=== PATIENT | female | born 1955 | race Two or more races ===

== ENCOUNTER 2021-06-19 18:32 | Inpatient (IN) | payer MEDICARE, OTHER ==
[~2021-06-19] VITALS: Ht 157.5 cm; Wt 95.0 kg
[2021-06-19] MEDS ORDERED: IV NORMAL SALINE 500ML BAG 500 ML IV ONE (19:30)
[2021-06-19 19:50] LABS: BASO # 0.1 x10^3/uL (0.0-0.2); BASO % 1 % (0-3); EOS % 0 % (0-3); HEMATOCRIT 42.9 % (36.0-47.0); LYMPH # 3.3 x10^3/uL (1.0-4.8); LYMPH % 31 % (24-48); MEAN CORPUSCULAR HEMOGLOBIN 28 pg (25-35); MEAN CORPUSCULAR HGB CONC 33 g/dL (31-37); MEAN CORPUSCULAR VOLUME 86 fL (79-100); MONO # 0.7 x10^3/uL (0.0-1.1); MONO % 6 % (0-9); NEUT # 6.7 x10^3/uL (1.8-7.7); NEUT % 63 % (31-73); PLATELET COUNT 309 x10^3/uL (140-400); RED BLOOD COUNT 4.97 x10^6/uL (3.50-5.40); RED CELL DISTRIBUTION WIDTH 13.2 % (11.5-14.5); WHITE BLOOD COUNT 10.7 x10^3/uL (4.0-11.0)
[2021-06-19 20:00] LABS: PROTHROMBIN TIME PATIENT 12.7 SEC (11.7-14.0)
--- NOTE | 2021-06-19 20:01 | PHYS DOC ---
Past Medical History Past Surgical History: No Surgical History Adult General Chief Complaint Chief Complaint: CHEST PAIN HPI HPI 66-year-old female with a history of hyperlipidemia and elevated blood pressure without a formal diagnosis of hypertension, and without other medical problems for which she takes daily medication, presents for evaluation of palpitations and left-sided neck and arm discomfort with onset this morning upon awakening from sleep. Had an almost identical episode 1 week ago which resolved after a day and for which she did not seek care. Today she went to the doctor; at the clinic an EKG was obtained which showed atrial fibrillation with rapid ventricular response at a rate of 146. She was directed to the emergency department for further evaluation and treatment. Upon initial evaluation here in the emergency department patient is alert and pleasantly and appropriately interactive and in no acute distress with appropriate vital signs aside from elevated blood pressure and a rapid heart rate, with atrial fibrillation noted on cardiac telemetry. She endorses no discomfort right now but notes a rapid heartbeat which is palpable to her. States before a week ago she had never had this sensation in the past. Patient denies fevers, nausea or vomiting, upper respiratory congestion/rhinorrhea, cough, sore throat, shortness of breath, chest pain of any kind, abdominal pain, flank pain, back pain, dysuria, hematuria, polyuria or oliguria, pain or swelling to arms or legs, changes in bowel habits. Review of Systems Review of Systems A 12 point review of systems was completed and was negative except where noted in HPI above. Current Medications Current Medications Current Medications Medications (Trade) Dose Ordered Sig/Yan Start Time Stop Time Status Last Admin Dose Admin Diltiazem HCl (Cardizem Iv Push) 20 mg 1X ONCE 06/19/21 19:30 06/19/21 19:31 DC 06/19/21 19:50 20 MG Diltiazem HCl 125 mg/Sodium Chloride 125 ml @ 5 mls/hr 1X ONCE 06/19/21 21:30 06/20/21 22:29 UNV Sodium Chloride 500 ml @ 500 mls/hr 1X ONCE 06/19/21 19:30 06/19/21 20:29 DC Allergies Allergies Allergies Coded Allergies Type Severity Reaction Last Updated Verified No Known Drug Allergies 06/19/21 No Physical Exam Physical Exam Older female appearing nontoxic and in no acute distress. Head is normocephalic and atraumatic. Neck is supple and nontender. Oropharynx is moist. Lungs are clear to auscultation at all stations. There is a normal S1 and S2 without rubs or gallops and capillary refill is appropriate, less than 2 seconds globally. Abdomen is soft, nontender nondistended. Skin is warm and dry without cyanosis, clubbing or edema. Psychiatrically, the patient demonstrates appropriate mood and affect and is alert. Evaluation of the extremities reveals BUEs and BLEs neurovascularly intact distally with strength 5 out of 5, sensation intact light touch in all nerve distributions, radial, DP and PT pulses 2+ and equal bilaterally, capillary refill less than 2 seconds, hands and feet warm and well-perfused. No dependent peripheral edema distally. No calf tenderness or swelling bilaterally. Homans test is negative bilaterally. Current Patient Data Vital Signs Vital Signs Date Time Temp Pulse Resp B/P (MAP) Pulse Ox O2 Delivery O2 Flow Rate FiO2 06/19/21 20:08 90 16 154/84 (107) 96 Room Air 06/19/21 19:10 97.8 97.8 Lab Values Laboratory Tests Test 06/19/21 19:40 White Blood Count 10.7 x10^3/uL (4.0-11.0) Red Blood Count 4.97 x10^6/uL (3.50-5.40) Hemoglobin 14.0 g/dL (12.0-15.5) Hematocrit 42.9 % (36.0-47.0) Mean Corpuscular Volume 86 fL (79-100) Mean Corpuscular Hemoglobin 28 pg (25-35) Mean Corpuscular Hemoglobin Concent 33 g/dL (31-37) Red Cell Distribution Width 13.2 % (11.5-14.5) Platelet Count 309 x10^3/uL (140-400) Neutrophils (%) (Auto) 63 % (31-73) Lymphocytes (%) (Auto) 31 % (24-48) Monocytes (%) (Auto) 6 % (0-9) Eosinophils (%) (Auto) 0 % (0-3) Basophils (%) (Auto) 1 % (0-3) Neutrophils # (Auto) 6.7 x10^3/uL (1.8-7.7) Lymphocytes # (Auto) 3.3 x10^3/uL (1.0-4.8) Monocytes # (Auto) 0.7 x10^3/uL (0.0-1.1) Eosinophils # (Auto) 0.0 x10^3/uL (0.0-0.7) Basophils # (Auto) 0.1 x10^3/uL (0.0-0.2) Prothrombin Time 12.7 SEC (11.7-14.0) Prothrombin Time INR 1.0 (0.8-1.1) Activated Partial Thromboplast Time 31 SEC (24-38) Sodium Level 140 mmol/L (136-145) Potassium Level 4.3 mmol/L (3.5-5.1) Chloride Level 106 mmol/L (98-107) Carbon Dioxide Level 26 mmol/L (21-32) Anion Gap 8 (6-14) Blood Urea Nitrogen 13 mg/dL (7-20) Creatinine 1.0 mg/dL (0.6-1.0) Estimated GFR (Cockcroft-Gault) 55.6 BUN/Creatinine Ratio 13 (6-20) Glucose Level 122 mg/dL (70-99) H Calcium Level 8.9 mg/dL (8.5-10.1) Total Bilirubin 0.4 mg/dL (0.2-1.0) Aspartate Amino Transferase (AST) 22 U/L (15-37) Alanine Aminotransferase (ALT) 26 U/L (14-59) Alkaline Phosphatase 93 U/L (46-116) Troponin I High Sensitivity 72 ng/L (4-50) H MY-Bcf-M-Type Natriuretic Peptide 1094 pg/mL (0-124) H Total Protein 8.6 g/dL (6.4-8.2) H Albumin 4.1 g/dL (3.4-5.0) Albumin/Globulin Ratio 0.9 (1.0-1.7) L Laboratory Tests 06/19/21 19:40 Laboratory Tests 06/19/21 19:40 EKG EKG Atrial fibrillation with rapid ventricular response, rate 130s, no acute ST elevation or depression, EP interpretation. Nonischemic tracing. Radiology/Procedures Radiology/Procedures 2 views of the chest demonstrate no acute cardiopulmonary abnormality per EP interpretation. Formal radiology interpretation is to follow. Course & Med Decision Making Course & Med Decision Making Plan for labs, EKG, plain films of the chest and rate control with Cardizem. Patient will require admission. 2024: Work-up as above. Heart rate not quite controlled with Cardizem push dose of Cardizem drip ordered. Patient resting comfortably in no acute distress on serial reassessments. Case discussed with Dr. Lei who graciously accepts the patient for inpatient admission. All questions have been answered. CC time 37 minutes, independent of separately-billed procedure time. Dragon Disclaimer Dragon Disclaimer This electronic medical record was generated, in whole or in part, using a voice recognition dictation system. Departure Departure Impression: Primary Impression: Atrial fibrillation with rapid ventricular response Disposition: ADMITTED INPATIENT Condition: STABLE Referrals: NO PCP (PCP) CARLIE INTERIANO MD Jun 19, 2021 20:01
[2021-06-19 20:07] LABS: CALCIUM 8.9 mg/dL (8.5-10.1); GFR 55.6; POTASSIUM 4.3 mmol/L (3.5-5.1)
[2021-06-19 20:13] LABS: ALBUMIN 4.1 g/dL (3.4-5.0); ALBUMIN/GLOBULIN RATIO 0.9 (1.0-1.7); TOTAL BILIRUBIN 0.4 mg/dL (0.2-1.0); TOTAL PROTEIN 8.6 g/dL (6.4-8.2)
--- NOTE | 2021-06-19 21:27 | RAD ---
Exam: Chest one view INDICATION: New onset A. fib TECHNIQUE: Frontal view of the chest Comparisons: None FINDINGS: The cardiomediastinal silhouette and pulmonary vessels are within normal limits. The lung and pleural spaces are clear. IMPRESSION: No acute cardiopulmonary process. Electronically signed by: Trini Oliva MD (06/19/2021 9:25 PM) USMAN
[2021-06-19] MEDS ORDERED: ACETAMINOPHEN 325 MG TABLET. PO PRN (21:30)
[2021-06-19] MEDS ORDERED: ONDANSETRON PF 4 MG/2 ML VIAL. IVP PRN (21:30)
--- NOTE | 2021-06-19 22:03 | HP ---
DATE OF SERVICE: 06/19/2021 ADMIT DATE: 06/19/2021 CHIEF COMPLAINT: Chest pain. HISTORY OF PRESENT ILLNESS: The patient is a pleasant 66-year-old female who presented to the ER with chest pain. While in the ER, we noticed that she is in AFib with RVR. I discussed the case with ER physician. We are going to admit the patient and consult Cardiology. PAST MEDICAL HISTORY: Hypertension. ALLERGIES: None. FAMILY HISTORY: Diabetes. SOCIAL HISTORY: She does not drink, smoke or take drugs. MEDICATIONS: Reviewed, please refer to the MRAD. REVIEW OF SYSTEMS: GENERAL: No history of weight change, weakness or fevers. SKIN: No bruising, hair changes or rashes. EYES: No blurred, double or loss of vision. NOSE AND THROAT: No history of nosebleeds, hoarseness or sore throat. HEART: No history of palpitations, chest pain or shortness of breath on exertion. LUNGS: Denies cough, hemoptysis, wheezing or shortness of breath. GASTROINTESTINAL: Denies changes in appetite, nausea, vomiting, diarrhea or constipation. GENITOURINARY: No history of frequency, urgency, hesitancy or nocturia. NEUROLOGIC: Denies history of numbness, tingling, tremor or weakness. PSYCHIATRIC: No history of panic, anxiety or depression. ENDOCRINE: No history of heat or cold intolerance, polyuria or polydipsia. EXTREMITIES: Denies muscle weakness, joint pain, pain on walking or stiffness. PHYSICAL EXAMINATION: VITALS: Within normal limits and are stable. GENERAL: No apparent distress. Alert and oriented. HEENT: Normal cephalic atraumatic, external auditory canals are patent. EYES: Extraocular muscles are intact, pupils are equally round and reactive to light and accommodation. MUSCULOSKELETAL: Well developed, well nourished, good range of motion. ENDOCRINE: No thyromegaly was palpated. LYMPHATICS: No cervical chain or axillary nodes were noted. HEMATOPOIETIC: No bruising. NECK: Supple, no JVD, no thyromegaly was noted. LUNGS: Clear to auscultation in all lung melendez without rhonchi or wheezing. HEART: RRR, S1, S2 present. Peripheral pulses intact, no obvious murmurs were noted. ABDOMEN: Soft, nontender. Positive bowel sounds no organomegaly, normal bowel sounds. EXTREMITIES: Without any cyanosis, clubbing, or edema. Pedal pulses intact, Homans sign is negative. NEUROLOGIC: Normal speech, normal tone. A and O x 3, moves all extremities, no obvious focal deficits. PSYCHIATRIC: Normal affect, normal mood. Stable. SKIN: No ulcerations or rashes, good skin turgor, no jaundice. VASCULAR: Good capillary refill, neurovascular bundle appears to be intact. LABORATORY DATA: Electrolytes are normal. Hematology is normal. INR is 1. EKG shows AFib with RVR. ASSESSMENT AND PLAN: Atrial fibrillation with rapid ventricular response. The patient has been admitted. We will consult Cardiology. We gave her a dose of IV Cardizem and started Cardizem drip. Home meds. Deep venous thrombosis prophylaxis. Full code. TAYLOR DR: Roxi TID: [id number]
[2021-06-19 23:30] VITALS: BP 195/97
[2021-06-20 03:45] VITALS: BP 117/73
[2021-06-20 04:28] LABS: BASO % 0 % (0-3); EOS # 0.1 x10^3/uL (0.0-0.7); EOS % 1 % (0-3); HEMATOCRIT 41.5 % (36.0-47.0); HEMOGLOBIN 13.6 g/dL (12.0-15.5); LYMPH # 3.6 x10^3/uL (1.0-4.8); LYMPH % 35 % (24-48); MEAN CORPUSCULAR HEMOGLOBIN 29 pg (25-35); MEAN CORPUSCULAR HGB CONC 33 g/dL (31-37); MEAN CORPUSCULAR VOLUME 87 fL (79-100); MONO # 0.5 x10^3/uL (0.0-1.1); MONO % 5 % (0-9); NEUT # 6.2 x10^3/uL (1.8-7.7); NEUT % 60 % (31-73); PLATELET COUNT 311 x10^3/uL (140-400); RED CELL DISTRIBUTION WIDTH 13.5 % (11.5-14.5); WHITE BLOOD COUNT 10.4 x10^3/uL (4.0-11.0)
[2021-06-20 04:49] LABS: CALCIUM 8.6 mg/dL (8.5-10.1); CREATININE 0.9 mg/dL (0.6-1.0); GFR 62.8; POTASSIUM 4.2 mmol/L (3.5-5.1)
[2021-06-20 04:54] LABS: CHOLESTEROL/HDL RATIO 4.1
--- NOTE | 2021-06-20 05:55 | EKG ---
[facility] [address] [place] [address] Test Date: 2021-06-19 Test Time: 19:08:30 Pat Name: CARLY TOVAR Department: Room: [facility] Gender: F Dairy Manager: : [id number] Requested By: CARLIE INTERIANO Order Number: [id number] Reading MD: Zay Prasad Measurements Intervals [place] Rate: 130 P: MD: QRS: -5 QRSD: 76 T: -4 QT: 280 QTc: 418 Interpretive Statements RAPID ATRIAL FIBRILLATION LEFTWARD AXIS Electronically Signed On 06-24-2021 18:16:25 [employer]ALL [employer]GER by Zay Prasad
[2021-06-20 07:00] VITALS: BP 118/74
--- NOTE | 2021-06-20 09:57 | PDOC2 ---
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 Lei SOURCE Source: Chart review, Patient HISTORY OF PRESENT ILLNESS HISTORY OF PRESENT ILLNESS This is a 66 yo female who presented secondary to AFIB. Experienced palpitations and pain in her left neck and arm. Saw PCP who conducted EKG and was noted in AFIB with RVR. Was referred to the ED for further evaluation and treatment. She denies any dizziness, diaphoresis, or shortness of breath. No prior h/o CAD or prior cardiac workup. Is presently on Cardizem gtt. She converted back to SR th is afternoon. PAST MEDICAL HISTORY Cardiovascular: HTN, Hyperlipidemia Musculoskeletal: Osteoarthritis PAST SURGICAL HISTORY Past Surgical History: No pertinent history FAMILY HISTORY Family History: Diabetes SOCIAL HISTORY Smoke: No ALCOHOL: none Drugs: None Lives: with Family CURRENT MEDICATIONS CURRENT MEDICATIONS Current Medications Medications (Trade) Dose Ordered Sig/Yan Route PRN Reason Start Time Stop Time Status Last Admin Dose Admin Diltiazem HCl (Cardizem Iv Push) 20 mg 1X ONCE IVP 06/19/21 19:30 06/19/21 19:31 DC 06/19/21 19:50 Sodium Chloride 500 ml @ 500 mls/hr 1X ONCE IV 06/19/21 19:30 06/19/21 20:29 DC 06/19/21 19:40 Diltiazem HCl 125 mg/Sodium Chloride 125 ml @ 5 mls/hr 1X ONCE IV 06/19/21 21:30 06/20/21 22:29 06/19/21 21:30 Enoxaparin Sodium (Lovenox 100mg Syringe) 100 mg 1X ONCE SQ 06/19/21 21:30 06/19/21 21:36 DC 06/19/21 21:39 ALLERGIES ALLERGIES: Coded Allergies: No Known Drug Allergies (Unverified , 06/19/21) ROS Review of System 14 point ROS conducted with pertinent positives noted above in hPI PHYSICAL EXAM General: Alert, Oriented X3, Cooperative, mild distress HEENT: Atraumatic, Mucous membr. moist/pink Lungs: Clear to auscultation Heart: Regular rate Abdomen: Soft, No tenderness Extremities: No edema, Normal pulses Neuro: Normal gait, Normal speech, Sensation intact Psych/Mental Status: Mental status NL, Mood NL MUSCULOSKELETAL: Osteoarthritic changes both hands VITALS/I&O VITALS/I&O: Vital Signs Date Time Temp Pulse Resp B/P (MAP) Pulse Ox O2 Delivery O2 Flow Rate FiO2 06/20/21 07:00 97.4 101 20 118/74 (89) 95 Room Air 97.4 I & O 06/19/21 06/19/21 06/20/21 15:00 23:00 07:00 Intake Total 200 ml Output Total 200 ml Balance 0 ml LABS Lab: Laboratory Tests Test 06/19/21 19:40 06/19/21 22:45 06/20/21 00:40 06/20/21 03:25 White Blood Count 10.7 x10^3/uL (4.0-11.0) 10.4 x10^3/uL (4.0-11.0) Red Blood Count 4.97 x10^6/uL (3.50-5.40) 4.80 x10^6/uL (3.50-5.40) Hemoglobin 14.0 g/dL (12.0-15.5) 13.6 g/dL (12.0-15.5) Hematocrit 42.9 % (36.0-47.0) 41.5 % (36.0-47.0) Mean Corpuscular Volume 86 fL (79-100) 87 fL (79-100) Mean Corpuscular Hemoglobin 28 pg (25-35) 29 pg (25-35) Mean Corpuscular Hemoglobin Concent 33 g/dL (31-37) 33 g/dL (31-37) Red Cell Distribution Width 13.2 % (11.5-14.5) 13.5 % (11.5-14.5) Platelet Count 309 x10^3/uL (140-400) 311 x10^3/uL (140-400) Neutrophils (%) (Auto) 63 % (31-73) 60 % (31-73) Lymphocytes (%) (Auto) 31 % (24-48) 35 % (24-48) Monocytes (%) (Auto) 6 % (0-9) 5 % (0-9) Eosinophils (%) (Auto) 0 % (0-3) 1 % (0-3) Basophils (%) (Auto) 1 % (0-3) 0 % (0-3) Neutrophils # (Auto) 6.7 x10^3/uL (1.8-7.7) 6.2 x10^3/uL (1.8-7.7) Lymphocytes # (Auto) 3.3 x10^3/uL (1.0-4.8) 3.6 x10^3/uL (1.0-4.8) Monocytes # (Auto) 0.7 x10^3/uL (0.0-1.1) 0.5 x10^3/uL (0.0-1.1) Eosinophils # (Auto) 0.0 x10^3/uL (0.0-0.7) 0.1 x10^3/uL (0.0-0.7) Basophils # (Auto) 0.1 x10^3/uL (0.0-0.2) 0.0 x10^3/uL (0.0-0.2) Prothrombin Time 12.7 SEC (11.7-14.0) Prothrombin Time INR 1.0 (0.8-1.1) Activated Partial Thromboplast Time 31 SEC (24-38) Sodium Level 140 mmol/L (136-145) 143 mmol/L (136-145) Potassium Level 4.3 mmol/L (3.5-5.1) 4.2 mmol/L (3.5-5.1) Chloride Level 106 mmol/L (98-107) 106 mmol/L (98-107) Carbon Dioxide Level 26 mmol/L (21-32) 25 mmol/L (21-32) Anion Gap 8 (6-14) 12 (6-14) Blood Urea Nitrogen 13 mg/dL (7-20) 13 mg/dL (7-20) Creatinine 1.0 mg/dL (0.6-1.0) 0.9 mg/dL (0.6-1.0) Estimated GFR (Cockcroft-Gault) 55.6 62.8 BUN/Creatinine Ratio 13 (6-20) Glucose Level 122 mg/dL (70-99) H 153 mg/dL (70-99) H Calcium Level 8.9 mg/dL (8.5-10.1) 8.6 mg/dL (8.5-10.1) Total Bilirubin 0.4 mg/dL (0.2-1.0) Aspartate Amino Transferase (AST) 22 U/L (15-37) Alanine Aminotransferase (ALT) 26 U/L (14-59) Alkaline Phosphatase 93 U/L (46-116) Troponin I High Sensitivity 72 ng/L (4-50) H 67 ng/L (4-50) H 53 ng/L (4-50) H QY-Ngm-N-Type Natriuretic Peptide 1094 pg/mL (0-124) H Total Protein 8.6 g/dL (6.4-8.2) H Albumin 4.1 g/dL (3.4-5.0) Albumin/Globulin Ratio 0.9 (1.0-1.7) L SARS-CoV-2 Antigen (Rapid) Negative (NEGATIVE) Triglycerides Level 176 mg/dL (0-150) H Cholesterol Level 168 mg/dL (0-200) LDL Cholesterol, Calculated 92 mg/dL (0-100) VLDL Cholesterol, Calculated 35 mg/dL (0-40) Non-HDL Cholesterol Calculated 127 mg/dL (0-129) HDL Cholesterol 41 mg/dL (40-60) Cholesterol/HDL Ratio 4.1 Laboratory Tests 06/19/21 19:40 06/20/21 03:25 Laboratory Tests 06/19/21 19:40 06/20/21 03:25 ASSESSMENT/PLAN ASSESSMENT/PLAN 1. Chest pain, palpitations; most likely secondary to RVR 2. AFIB with RVR; new onset. on Cardizem gtt for rate control. Converted back to SR this afternoon. Hr presently 66. 3. Mild troponin elevation; high sensitivity peak 72. Most probably type II, demand ischemic in setting of above. 4. Hypertension; controlled 5. Hyperlipidemia Recommendations Start oral Cardizem for rate control. Titrate off gtt Add Eliquis for stroke prophylaxis Echo to assess LV systolic function TSH Probable outpatient ischemic evaluation Supportive care Further pending above. SAMEER KINGSLEY MD 06/20/211: CARDIAC CONSULT ASSESSMENT/PLAN ASSESSMENT/PLAN Patiet seen and examined. Agree with VICE PRESIDENT [employer] DEVELOPMENT's assessment and plan Titrate CZM drip off and start oral CZM Stop lovenox and star start statin if already not on it Plan ougpatient ischemic evaluation Thank you for your consultationt MALLORY RODRIGUEZ APRN Jun 20, 2021 09:57 SAMERE KIGNSLEY MD Jun 20, 2021 21:25
[2021-06-20 11:00] VITALS: BP 126/84
--- NOTE | 2021-06-20 13:54 | NUR ---
SS following for discharge planning. SS reviewed pt chart and discussed with pt RN. Pt is from home with spouse and is currently on room air. COVID19 negative. Cardiology following. SS will continue to follow for discharge planning.
--- NOTE | 2021-06-20 14:54 | PDOC ---
[employer] PROGRESS NOTE Date of Service DOS: DATE: 06/20/21 TIME: 14:53 Chief Complaint Chief Complaint acute diastolic CHF Atrial fibrillation with rapid ventricular response. obese, BMI 38 weakness History of Present Illness History of Present Illness consult Cardiology has ordered PO cardizem wasn on IV Cardizem and started Cardizem drip. Vitals/I&O Vitals/I&O: Vital Signs Date Time Temp Pulse Resp B/P (MAP) Pulse Ox O2 Delivery O2 Flow Rate FiO2 06/20/21 11:00 97.2 105 20 126/84 (98) 97 Room Air 97.2 I & O 06/19/21 06/19/21 06/20/21 15:00 23:00 07:00 Intake Total 200 ml Output Total 200 ml Balance 0 ml Physical Exam General: Alert, Oriented X3, Cooperative, No acute distress Heart: Regular rate, Normal S2, No murmurs Lungs: Wheezing Extremities: No clubbing, No cyanosis Skin: No breakdown Labs Labs: Laboratory Tests Test 06/19/21 19:40 06/19/21 22:45 06/20/21 00:40 06/20/21 03:25 White Blood Count 10.7 x10^3/uL (4.0-11.0) 10.4 x10^3/uL (4.0-11.0) Red Blood Count 4.97 x10^6/uL (3.50-5.40) 4.80 x10^6/uL (3.50-5.40) Hemoglobin 14.0 g/dL (12.0-15.5) 13.6 g/dL (12.0-15.5) Hematocrit 42.9 % (36.0-47.0) 41.5 % (36.0-47.0) Mean Corpuscular Volume 86 fL (79-100) 87 fL (79-100) Mean Corpuscular Hemoglobin 28 pg (25-35) 29 pg (25-35) Mean Corpuscular Hemoglobin Concent 33 g/dL (31-37) 33 g/dL (31-37) Red Cell Distribution Width 13.2 % (11.5-14.5) 13.5 % (11.5-14.5) Platelet Count 309 x10^3/uL (140-400) 311 x10^3/uL (140-400) Neutrophils (%) (Auto) 63 % (31-73) 60 % (31-73) Lymphocytes (%) (Auto) 31 % (24-48) 35 % (24-48) Monocytes (%) (Auto) 6 % (0-9) 5 % (0-9) Eosinophils (%) (Auto) 0 % (0-3) 1 % (0-3) Basophils (%) (Auto) 1 % (0-3) 0 % (0-3) Neutrophils # (Auto) 6.7 x10^3/uL (1.8-7.7) 6.2 x10^3/uL (1.8-7.7) Lymphocytes # (Auto) 3.3 x10^3/uL (1.0-4.8) 3.6 x10^3/uL (1.0-4.8) Monocytes # (Auto) 0.7 x10^3/uL (0.0-1.1) 0.5 x10^3/uL (0.0-1.1) Eosinophils # (Auto) 0.0 x10^3/uL (0.0-0.7) 0.1 x10^3/uL (0.0-0.7) Basophils # (Auto) 0.1 x10^3/uL (0.0-0.2) 0.0 x10^3/uL (0.0-0.2) Prothrombin Time 12.7 SEC (11.7-14.0) Prothromb Time International Ratio 1.0 (0.8-1.1) Activated Partial Thromboplast Time 31 SEC (24-38) Sodium Level 140 mmol/L (136-145) 143 mmol/L (136-145) Potassium Level 4.3 mmol/L (3.5-5.1) 4.2 mmol/L (3.5-5.1) Chloride Level 106 mmol/L (98-107) 106 mmol/L (98-107) Carbon Dioxide Level 26 mmol/L (21-32) 25 mmol/L (21-32) Anion Gap 8 (6-14) 12 (6-14) Blood Urea Nitrogen 13 mg/dL (7-20) 13 mg/dL (7-20) Creatinine 1.0 mg/dL (0.6-1.0) 0.9 mg/dL (0.6-1.0) Estimated GFR (Cockcroft-Gault) 55.6 62.8 BUN/Creatinine Ratio 13 (6-20) Glucose Level 122 mg/dL (70-99) 153 mg/dL (70-99) Calcium Level 8.9 mg/dL (8.5-10.1) 8.6 mg/dL (8.5-10.1) Total Bilirubin 0.4 mg/dL (0.2-1.0) Aspartate Amino Transf (AST/SGOT) 22 U/L (15-37) Alanine Aminotransferase (ALT/SGPT) 26 U/L (14-59) Alkaline Phosphatase 93 U/L (46-116) Troponin I High Sensitivity 72 ng/L (4-50) 67 ng/L (4-50) 53 ng/L (4-50) TW-Etr-U-Type Natriuretic Peptide 1094 pg/mL (0-124) Total Protein 8.6 g/dL (6.4-8.2) Albumin 4.1 g/dL (3.4-5.0) Albumin/Globulin Ratio 0.9 (1.0-1.7) SARS-CoV-2 Antigen (Rapid) Negative (NEGATIVE) Triglycerides Level 176 mg/dL (0-150) Cholesterol Level 168 mg/dL (0-200) LDL Cholesterol, Calculated 92 mg/dL (0-100) VLDL Cholesterol, Calculated 35 mg/dL (0-40) Non-HDL Cholesterol Calculated 127 mg/dL (0-129) HDL Cholesterol 41 mg/dL (40-60) Cholesterol/HDL Ratio 4.1 Thyroid Stimulating Hormone (TSH) 1.443 uIU/mL (0.358-3.74) Assessment and Plan Assessmemt and Plan Problems Medical Problems: (1) Atrial fibrillation with rapid ventricular response Status: Acute Comment Review of Relevant I have reviewed the following items val (where applicable) has been applied. Medications: Current Medications Medications (Trade) Dose Ordered Sig/Yan Route PRN Reason Start Time Stop Time Status Last Admin Dose Admin Diltiazem HCl (Cardizem Iv Push) 20 mg 1X ONCE IVP 06/19/21 19:30 06/19/21 19:31 DC 06/19/21 19:50 Sodium Chloride 500 ml @ 500 mls/hr 1X ONCE IV 06/19/21 19:30 06/19/21 20:29 DC 06/19/21 19:40 Diltiazem HCl 125 mg/Sodium Chloride 125 ml @ 5 mls/hr 1X ONCE IV 06/19/21 21:30 06/20/21 22:29 06/19/21 21:30 Enoxaparin Sodium (Lovenox 100mg Syringe) 100 mg 1X ONCE SQ 06/19/21 21:30 06/19/21 21:36 DC 06/19/21 21:39 Diltiazem HCl (Cardizem 24hr Cd) 180 mg DAILY PO 06/20/21 11:00 06/20/21 10:45 Justifications for Admission Other Justification RUTHIE GRAVES MD Jun 20, 2021 14:54
[2021-06-20 15:00] VITALS: BP 125/71
[2021-06-20] MEDS ORDERED: dilTIAZem HCL 30 MG TABLET PO SCH (15:00)
[2021-06-20 19:30] VITALS: BP 131/68
--- NOTE | 2021-06-20 21:39 | PDOC ---
PROGRESS NOTES Date of Service: DATE: 06/20/21 TIME: 21:38 Subjective Subjective Comfortable without any new complaints Objective Objective Vital Signs Date Time Temp Pulse Resp B/P (MAP) Pulse Ox O2 Delivery O2 Flow Rate FiO2 06/20/21 19:30 97.8 61 20 131/68 (89) 97 Room Air 97.8 Intake and Output 06/20/21 07:00 Intake Total 200 ml Output Total 200 ml Balance 0 ml Intake Oral 200 ml Output Urine Total 200 ml Physical Exam Abdomen: Soft, No tenderness Heart: Regular rate Extremities: No edema, Normal pulses General: Alert, Oriented X3, Cooperative, mild distress HEENT: Atraumatic, Mucous membr. moist/pink Lungs: Clear to auscultation MUSCULOSKELETAL: Osteoarthritic changes both hands Neuro: Normal gait, Normal speech, Sensation intact Psych/Mental Status: Mental status NL, Mood NL Skin: No breakdown Assessment Assessment Patiet seen and examined. Agree with CLERICAL SPECIALIST's assessment and plan Titrate CZM drip off and start oral CZM Stop lovenox and star start statin if already not on it Plan ougpatient ischemic evaluation Plan Plan of Care Problems Medical Problems: (1) Atrial fibrillation with rapid ventricular response Status: Acute Comment Review of Relevant I have reviewed the following items val (where applicable) has been applied. Labs Laboratory Tests Test 06/19/21 22:45 06/20/21 00:40 06/20/21 03:25 SARS-CoV-2 Antigen (Rapid) Negative (NEGATIVE) Troponin I High Sensitivity 67 ng/L (4-50) 53 ng/L (4-50) White Blood Count 10.4 x10^3/uL (4.0-11.0) Red Blood Count 4.80 x10^6/uL (3.50-5.40) Hemoglobin 13.6 g/dL (12.0-15.5) Hematocrit 41.5 % (36.0-47.0) Mean Corpuscular Volume 87 fL (79-100) Mean Corpuscular Hemoglobin 29 pg (25-35) Mean Corpuscular Hemoglobin Concent 33 g/dL (31-37) Red Cell Distribution Width 13.5 % (11.5-14.5) Platelet Count 311 x10^3/uL (140-400) Neutrophils (%) (Auto) 60 % (31-73) Lymphocytes (%) (Auto) 35 % (24-48) Monocytes (%) (Auto) 5 % (0-9) Eosinophils (%) (Auto) 1 % (0-3) Basophils (%) (Auto) 0 % (0-3) Neutrophils # (Auto) 6.2 x10^3/uL (1.8-7.7) Lymphocytes # (Auto) 3.6 x10^3/uL (1.0-4.8) Monocytes # (Auto) 0.5 x10^3/uL (0.0-1.1) Eosinophils # (Auto) 0.1 x10^3/uL (0.0-0.7) Basophils # (Auto) 0.0 x10^3/uL (0.0-0.2) Sodium Level 143 mmol/L (136-145) Potassium Level 4.2 mmol/L (3.5-5.1) Chloride Level 106 mmol/L (98-107) Carbon Dioxide Level 25 mmol/L (21-32) Anion Gap 12 (6-14) Blood Urea Nitrogen 13 mg/dL (7-20) Creatinine 0.9 mg/dL (0.6-1.0) Estimated GFR (Cockcroft-Gault) 62.8 Glucose Level 153 mg/dL (70-99) Calcium Level 8.6 mg/dL (8.5-10.1) Triglycerides Level 176 mg/dL (0-150) Cholesterol Level 168 mg/dL (0-200) LDL Cholesterol, Calculated 92 mg/dL (0-100) VLDL Cholesterol, Calculated 35 mg/dL (0-40) Non-HDL Cholesterol Calculated 127 mg/dL (0-129) HDL Cholesterol 41 mg/dL (40-60) Cholesterol/HDL Ratio 4.1 Thyroid Stimulating Hormone (TSH) 1.443 uIU/mL (0.358-3.74) Medications Current Medications Diltiazem HCl (Cardizem 24hr Cd) 180 mg DAILY PO Last administered on 06/20/21at 10:45; Start 06/20/21 at 11:00 Diltiazem HCl (Cardizem) 60 mg Q8HRS PO ; Start 06/20/21 at 15:00; Stop 06/20/21 at 14:53; Status DC Vitals/I & O Vital Sign - Last 24 Hours 06/19/21 06/19/21 06/19/21 06/19/21 21:40 22:15 23:00 23:15 Pulse 110 110 122 128 Resp 16 18 18 18 B/P (MAP) 141/98 (112) 140/97 (111) 149/96 (113) 154/84 (107) Pulse Ox 97 97 96 98 O2 Delivery Room Air Room Air Room Air Room Air 06/19/21 06/20/21 06/20/21 06/20/21 23:30 03:45 07:00 10:45 Temp 97.7 97.7 97.4 97.7 97.7 97.4 Pulse 115 110 101 101 Resp 20 20 20 B/P (MAP) 195/97 (129) 117/73 (88) 118/74 (89) 118/74 Pulse Ox 97 98 95 O2 Delivery Room Air Room Air Room Air 06/20/21 06/20/21 06/20/21 11:00 15:00 19:30 Temp 97.2 98.1 97.8 97.2 98.1 97.8 Pulse 105 59 61 Resp 20 20 20 B/P (MAP) 126/84 (98) 125/71 (89) 131/68 (89) Pulse Ox 97 94 97 O2 Delivery Room Air Room Air Room Air Intake and Output 06/19/21 06/19/21 06/20/21 15:00 23:00 07:00 Intake Total 200 ml Output Total 200 ml Balance 0 ml SAMEER KINGSLEY MD Jun 20, 2021 21:39
[2021-06-20 23:05] VITALS: BP 126/71
[2021-06-21 03:16] VITALS: BP 133/72
[2021-06-21 07:00] VITALS: BP 151/69
[2021-06-21 11:00] VITALS: BP 130/73
--- NOTE | 2021-06-21 11:11 | PDOC ---
MALLORY RODRIGUEZ APRN 06/21/21 1111: CARDIO Progress Notes Date and Time Date of Service 06/21/21 Time of Evaluation 1100 Subjective Subjective: No Chest Pain, No shortness of breath, No Palpitations Vitals Vitals Vital Signs Date Time Temp Pulse Resp B/P (MAP) Pulse Ox O2 Delivery O2 Flow Rate FiO2 06/21/21 08:35 62 151/69 06/21/21 07:00 97.9 19 96 Room Air 97.9 Weight Weight [ ] Input and Output Intake and Output Intake and Output 06/21/21 07:00 Intake Total 580 ml Balance 580 ml Intake Oral 580 ml Physical Exam HEENT: Neck Supple W Full Motion Chest: Symmetric LUNGS: Clear to Auscultation Heart: RRR Abdomen: Soft N/T Extremities: No Edema Neurology: oriented, follow commands Assessment Assessment 1. Chest pain, palpitations; most likely secondary to RVR. resolved 2. AFIB with RVR; new onset. Converted back to SR yesterday afternoon and has maintained. Echo showed preserved LV systolic function and diastolic dysfunction 3. Mild troponin elevation; high sensitivity peak 72. Most probably type II, demand ischemic in setting of above. 4. Hypertension; controlled 5. Hyperlipidemia Recommendations Will decrease Cardizem to 120mg with mild bradycardia Eliquis for stroke prophylaxis Probable outpatient ischemic evaluation Follow up in our office with Dr. Wood as scheduled Justicifation of Admission Dx: Justifications for Admission: Justification of Admission Dx: Yes Comments: new onset AFIB with RVR SAMEER WOOD MD 06/21/21 1839: CARDIO Progress Notes Assessment Assessment Patiet seen and examined. Agree with PADDED BOX SEWER's assessment and plan PAF presently back in SR Continue cardizem for rate control and eliquis for stroke prophylaxis 2D echo showed normal LV function Plan outpatient ischemic evaluation MALLORY RODRIGUEZ APRN Jun 21, 2021 11:11 SAMEER WOOD MD Jun 21, 2021 18:39
[2021-06-21] MEDS ORDERED: APIXABAN 5 MG TABLET. PO SCH (12:00)
--- NOTE | 2021-06-21 12:17 | CARD ---
MR#: [id number] Date of Study: 06/20/2021 Ordering Physician: MALLORY RODRIGUEZ, Referring Physician: MALLORY RODRIGUEZ, Tech: Ilda Dalceciliojessy, [facility] APPROVED REPORT EXAM: Two-dimensional and M-mode echocardiogram with Doppler and color Doppler. INDICATION Atrial Fibrillation RISK FACTORS Hyperlipidemia 2D DIMENSIONS Left Atrium(2D)3.6 (1.6-4.0cm)IVSd1.2 (0.7-1.1cm) Aortic Root(2D)2.8 (2.0-3.7cm)LVDd4.6 (3.9-5.9cm) LVOT Diameter2.0 (1.8-2.4cm)PWd1.2 (0.7-1.1cm) LVDs2.7 (2.5-4.0cm)FS (%) 42.0 % SV71.6 mlLVEF(%)73.0 (>50%) Aortic Valve AoV Peak Gerardo.151.6cm/sAoV VTI32.0cm AO Peak GR.9.2mmHgLVOT VTI 27.64cm AO Mean GR.5mmHg Mitral Valve MV E Lhqbfgel91.1cm/sMV E Peak Gr.3mmHg MV DECEL [id number] A Kzmtrrrb12.2cm/s MV E Mean Gr.1mmHgE/A Ratio0.8 TDI Lateral E' P. V6.50cm/sMedial E' P. V6.50cm/s E/Lateral E'7.9E/Medial E'7.9 Tricuspid Valve TR P. Auunbbrb162yl/sRAP [id number] TR Peak Gr.61fsWsCNZA24lsLd Pulmonary Vein S1 Nvkbqayl42.1cm/sS2 Bkhuatzd02.44cm/s D2 Sympkfiq23.4cm/sPVa qltaolvf400lymp LEFT VENTRICLE The left ventricle is normal size. There is mild concentric left ventricular hypertrophy. The left ve ntricular systolic function is normal. The Ejection Fraction is 55%. There is normal LV segmental wal l motion. Transmitral Doppler flow pattern is Grade I-abnormal relaxation pattern. RIGHT VENTRICLE The right ventricle is normal size. There is normal right ventricular wall thickness. The right ventr icular systolic function is normal. ATRIA The left atrium size is normal. The right atrium size is normal. The interatrial septum is intact wit h no evidence for an atrial septal defect or patent foramen ovale as noted on 2-D or Doppler imaging. AORTIC VALVE The aortic valve is normal in structure and function. Doppler and Color Flow revealed no significant aortic regurgitation. There is no significant aortic valvular stenosis. Calculated aortic valve area is 2.85 cm2 with maximum pressure gradient of 9 mmHg and mean pressure gradient of 5 mmHg. MITRAL VALVE The mitral valve is normal in structure and function. There is no evidence of mitral valve prolapse. There is no mitral valve stenosis. Doppler and Color-flow revealed trace mitral regurgitation. TRICUSPID VALVE The tricuspid valve is normal in structure and function. Doppler and Color Flow revealed trace tricus pid regurgitation with an estimated PAP of 26 mmHg. There is no tricuspid valve stenosis. PULMONIC VALVE The pulmonic valve is not well visualized. Doppler and Color Flow revealed trace pulmonic valvular re gurgitation. GREAT VESSELS The aortic root is normal in size. The IVC is normal in size and collapses >50% with inspiration. PERICARDIAL EFFUSION There is no evidence of significant pericardial effusion. Critical Notification Critical Value: No <Conclusion> The left ventricular systolic function is normal. The Ejection Fraction is 55%. There is normal LV segmental wall motion. Transmitral Doppler flow pattern is Grade I-abnormal relaxation pattern. Trace mitral regurgitation. Trace tricuspid regurgitation with an estimated PAP of 26 mmHg. There is no evidence of significant pericardial effusion. Signed by : Andrea Wood, Electronically Approved : 06/21/2021 12:16:50
[2021-06-21] MEDS ORDERED: DILT120C99 PO (13:11)
[2021-06-21] MEDS ORDERED: APIX5TAB PO (13:11)
--- NOTE | 2021-06-21 13:37 | NUR ---
SS following up with discharge planning. SS reviewed pt chart and discussed with pt RN. Pt is currently on room air. COVID19 negative. Cardiology following. SS will continue to follow for discharge planning.
--- NOTE | 2021-06-21 13:41 | PDOC3 ---
Discharge Summary Visit Information Date of Admission: Jun 19, 2021 Date of Discharge: Jun 21, 2021 Final Diagnosis acute diastolic CHF, mild Atrial fibrillation with rapid ventricular response. obese, BMI 38 weakness Problems Medical Problems: (1) Atrial fibrillation with rapid ventricular response Status: Acute Brief Hospital Course Allergies Allergies Coded Allergies Type Severity Reaction Last Updated Verified No Known Drug Allergies 06/19/21 No Vital Signs Vital Signs Date Time Temp Pulse Resp B/P (MAP) Pulse Ox O2 Delivery O2 Flow Rate FiO2 06/21/21 11:00 97.6 64 20 130/73 (92) 94 Room Air 97.6 Lab Results Laboratory Tests Test 06/19/21 19:40 06/19/21 22:45 06/20/21 00:40 06/20/21 03:25 White Blood Count 10.7 x10^3/uL (4.0-11.0) 10.4 x10^3/uL (4.0-11.0) Red Blood Count 4.97 x10^6/uL (3.50-5.40) 4.80 x10^6/uL (3.50-5.40) Hemoglobin 14.0 g/dL (12.0-15.5) 13.6 g/dL (12.0-15.5) Hematocrit 42.9 % (36.0-47.0) 41.5 % (36.0-47.0) Mean Corpuscular Volume 86 fL (79-100) 87 fL (79-100) Mean Corpuscular Hemoglobin 28 pg (25-35) 29 pg (25-35) Mean Corpuscular Hemoglobin Concent 33 g/dL (31-37) 33 g/dL (31-37) Red Cell Distribution Width 13.2 % (11.5-14.5) 13.5 % (11.5-14.5) Platelet Count 309 x10^3/uL (140-400) 311 x10^3/uL (140-400) Neutrophils (%) (Auto) 63 % (31-73) 60 % (31-73) Lymphocytes (%) (Auto) 31 % (24-48) 35 % (24-48) Monocytes (%) (Auto) 6 % (0-9) 5 % (0-9) Eosinophils (%) (Auto) 0 % (0-3) 1 % (0-3) Basophils (%) (Auto) 1 % (0-3) 0 % (0-3) Neutrophils # (Auto) 6.7 x10^3/uL (1.8-7.7) 6.2 x10^3/uL (1.8-7.7) Lymphocytes # (Auto) 3.3 x10^3/uL (1.0-4.8) 3.6 x10^3/uL (1.0-4.8) Monocytes # (Auto) 0.7 x10^3/uL (0.0-1.1) 0.5 x10^3/uL (0.0-1.1) Eosinophils # (Auto) 0.0 x10^3/uL (0.0-0.7) 0.1 x10^3/uL (0.0-0.7) Basophils # (Auto) 0.1 x10^3/uL (0.0-0.2) 0.0 x10^3/uL (0.0-0.2) Prothrombin Time 12.7 SEC (11.7-14.0) Prothromb Time International Ratio 1.0 (0.8-1.1) Activated Partial Thromboplast Time 31 SEC (24-38) Sodium Level 140 mmol/L (136-145) 143 mmol/L (136-145) Potassium Level 4.3 mmol/L (3.5-5.1) 4.2 mmol/L (3.5-5.1) Chloride Level 106 mmol/L (98-107) 106 mmol/L (98-107) Carbon Dioxide Level 26 mmol/L (21-32) 25 mmol/L (21-32) Anion Gap 8 (6-14) 12 (6-14) Blood Urea Nitrogen 13 mg/dL (7-20) 13 mg/dL (7-20) Creatinine 1.0 mg/dL (0.6-1.0) 0.9 mg/dL (0.6-1.0) Estimated GFR (Cockcroft-Gault) 55.6 62.8 BUN/Creatinine Ratio 13 (6-20) Glucose Level 122 mg/dL (70-99) 153 mg/dL (70-99) Calcium Level 8.9 mg/dL (8.5-10.1) 8.6 mg/dL (8.5-10.1) Total Bilirubin 0.4 mg/dL (0.2-1.0) Aspartate Amino Transf (AST/SGOT) 22 U/L (15-37) Alanine Aminotransferase (ALT/SGPT) 26 U/L (14-59) Alkaline Phosphatase 93 U/L (46-116) Troponin I High Sensitivity 72 ng/L (4-50) 67 ng/L (4-50) 53 ng/L (4-50) ZU-Qqu-C-Type Natriuretic Peptide 1094 pg/mL (0-124) Total Protein 8.6 g/dL (6.4-8.2) Albumin 4.1 g/dL (3.4-5.0) Albumin/Globulin Ratio 0.9 (1.0-1.7) SARS-CoV-2 Antigen (Rapid) Negative (NEGATIVE) Triglycerides Level 176 mg/dL (0-150) Cholesterol Level 168 mg/dL (0-200) LDL Cholesterol, Calculated 92 mg/dL (0-100) VLDL Cholesterol, Calculated 35 mg/dL (0-40) Non-HDL Cholesterol Calculated 127 mg/dL (0-129) HDL Cholesterol 41 mg/dL (40-60) Cholesterol/HDL Ratio 4.1 Thyroid Stimulating Hormone (TSH) 1.443 uIU/mL (0.358-3.74) Brief Hospital Course Ms. Caldera is a 66 old female, Azeri speaking only, admit for chest pain and shortness of breath. AFIB RVR, on cardizem gtt, then back to sinus, Echo, EF 55%, no wall motion problems, CV consulted, Dr. Wood followed DC on 2 meds, she takes a cholesterol med that she cannot recall. follows at [facility] [address], f/u there next week weight loss plan discussed, she and her daughter laughed out loud as they had clearly been talking previously about he exact same thing of trying to eat less refined starch common to her diet. Assessment Assessment ECHO 06/20 <Conclusion> The left ventricular systolic function is normal. The Ejection Fraction is 55%. There is normal LV segmental wall motion. Transmitral Doppler flow pattern is Grade I-abnormal relaxation pattern. Trace mitral regurgitation. Trace tricuspid regurgitation with an estimated PAP of 26 mmHg. There is no evidence of significant pericardial effusion. Discharge Information Condition at Discharge: Improved Follow Up: Weeks Disposition/Orders: D/C to Home Patient Instructions Patient Instructions face to face 2 times 39 mintutes total Justicifation of Admission Dx: Justifications for Admission: Justification of Admission Dx: Yes CHF: Cardiac Arrhythmias RUTHIE GRAVES MD Jun 21, 2021 13:41
[2021-06-21 14:45] VITALS: BP 132/72
== END 2021-06-21 16:00 | disposition home or self-care (01) | DRG 308 ==
LOC: ER 18:32 → ED HOLD 21:28 → 6 SOUTH 21:28
PROVIDERS: ADMIT Internal Medicine; ATTEND Internal Medicine
DX: I48.0 Paroxysmal atrial fibrillation (principal); I50.31 Acute diastolic (congestive) heart failure; I11.0 Hypertensive heart disease with heart failure; Z20.822 Contact with and (suspected) exposure to COVID-19; E66.9 Obesity, unspecified; M19.90 Unspecified osteoarthritis, unspecified site; I08.1 Rheumatic disorders of both mitral and tricuspid valves; E78.5 Hyperlipidemia, unspecified; Z83.3 Family history of diabetes mellitus; Z68.38 Body mass index [BMI] 38.0-38.9, adult
CPT/HCPCS: 36415; 71045; 80048; 80053; 80061; 83880; 84443; 84484; 85025; 85610; 85730; 87426; 93005; 93306; 96361; 96374; J1650; J3490; J7040; 99291-25; C8929; G0378